=== PATIENT | female | born 2000 | race Caucasian/White ===

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

== ENCOUNTER → 2019-02-19 | Outpatient (CLI) | payer BC | LOC: COL.RAD 07:41 | DX: R19.7 Diarrhea, unspecified (principal); R11.0 Nausea | CPT/HCPCS: A9541 ==

== ENCOUNTER → 2020-01-03 | Outpatient (CLI) | payer BC | LOC: COL.RAD 09:34 | DX: R11.2 Nausea with vomiting, unspecified (principal); R10.9 Unspecified abdominal pain ==

== ENCOUNTER → 2020-02-07 | Outpatient (CLI) | payer BC | LOC: COL.RAD 11:13 | DX: R11.2 Nausea with vomiting, unspecified (principal) ==

== ENCOUNTER → 2020-03-06 | Outpatient (CLI) | payer BC | LOC: COL.RAD 11:21 | DX: R11.2 Nausea with vomiting, unspecified (principal) | CPT/HCPCS: A9537; J2805 ==

== ENCOUNTER 2020-03-17 09:40 | Day surgery (SDC) | payer BC ==
[~2020-03-17] VITALS: Ht 165.1 cm; Wt 76.4 kg
[2020-03-17 10:12] VITALS: BP 126/73; PULSE 75; TEMP 98.4
[2020-03-17] MEDS ORDERED: MOTRIN 600600 MG/TAB PO (13:25)
[2020-03-17] MEDS ORDERED: PERCOCET 325 MG1 TA2 PO (13:25)
[2020-03-17 14:25] VITALS: BP 122/65; PULSE 67; TEMP 97.3
--- NOTE | 2020-03-17 14:25 | NUR ---
Patient arrives to [facility] via cart, accompanied by TECHNICAL SALES ENGINEER Starla Medel. She is sleepy, awakens to light touch/voice. She has 4 surgical sites on her abdomen that are clean/dry/glue intact. Abdomen is soft, tender. Monitoring is applied -VSS and WNL on room air. Call light in reach. Lights are dimmed for comfort. Will continue to monitor.
--- NOTE | 2020-03-17 14:36 | NUR ---
Patient requests a work release for herself and her boyfriend, who will help her today and tomorrow. Dr. Teixeira says this is OK and a work release is made for the patient for 2 weeks of time off to recover and the boyfriend for today/tomorrow. Office number is listed for questions.
[2020-03-17 14:40] VITALS: BP 134/49; PULSE 83
--- NOTE | 2020-03-17 14:45 | NUR ---
Patient is asleep in her room. She awakens briefly while checking on her, then falls back to sleep.
[2020-03-17 15:00] VITALS: BP 131/69; PULSE 65
--- NOTE | 2020-03-17 15:00 | NUR ---
Patient is awake upon entering her room. She is face-timing her boyfriend. She states she is "sore", but otherwise has no complaints. She is offered and receives a sprite and a jello. She sits up in bed with assist and minimal pain. Will continue to monitor.
[2020-03-17 15:15] VITALS: BP 130/70; PULSE 68
--- NOTE | 2020-03-17 15:24 | NUR ---
Patient has ate/drank without difficulty/complication. She states "I feel like I just did 10 ab workouts". She is given a PO Percocet for abdominal discomfort. VSS on room air.
[2020-03-17 15:30] VITALS: BP 136/80; PULSE 57
--- NOTE | 2020-03-17 15:39 | NUR ---
Patient ambulates to the restroom with standby assist and steady gait. She voids a large amount of clear/yellow urine and returns to room.
--- NOTE | 2020-03-17 15:56 | NUR ---
Patient has met discharge criteria. She states she is ready to go home. PIV is removed with catheter intact and hemostasis achieved. Nursing staff assists her to change to her clothing and gather her belongings. Discharge instructions are discussed; she denies any questions and verbalizes understanding. She is told to orange picking supervisor her prescriptions at her preferred pharmacy. SHe is provided information on a low-fat diet. She is told that she may start taking her Motrin at 1815 this evening, as she received toradol IV in the OR at 1215. She is told she may have another percocet at 1923, as she received one here at 1523. She is escorted to the exit via wheelchair by staff. She is discharged to home to care of boyfriend, who drives her in a private car, at 1556.
== END 2020-03-17 15:56 | disposition home or self-care (01) ==
LOC: SDCO 09:40
DX: K81.1 Chronic cholecystitis (principal); J45.909 Unspecified asthma, uncomplicated; F17.290 Nicotine dependence, other tobacco product, uncomplicated
CPT/HCPCS: J0690; J1100; J1170; J1885; J2175; J2405; J2704; J3010; J3475; J7120

== ENCOUNTER → 2020-09-15 | Outpatient (CLI) | payer BC ==
[~2020-09-15] MED LIST changes: +MOTRIN 600600 MG/TAB PO; +PERCOCET 325 MG1 TA2 PO
== END ==
LOC: COL.RAD 07:10
DX: R10.13 Epigastric pain (principal); R14.0 Abdominal distension (gaseous); Z90.49 Acquired absence of other specified parts of digestive tract
CPT/HCPCS: Q9967

== ENCOUNTER 2020-10-06 08:23 | Emergency (ER) | payer BC ==
[~2020-10-06] VITALS: Ht 165.1 cm; Wt 79.1 kg
[2020-10-06 08:45] VITALS: TEMP 98.8
[2020-10-06 08:59] LABS: COLLECTION METHOD CLEAN CATCH
[2020-10-06 09:24] LABS: MUCOUS Present /lpf; PH 5 (5-8); URINE APPEARANCE Hazy; URINE BACTERIA None Seen /hpf; URINE BILIRUBIN Negative (NEGATIVE); URINE BLOOD Negative (NEGATIVE); URINE COLOR Yellow; URINE GLUCOSE Negative (NEGATIVE); URINE KETONE Negative (NEGATIVE); URINE LEUKOCYTE ESTERASE 1+ (NEGATIVE); URINE NITRATE Negative (NEGATIVE); URINE PROTEIN(semi-quant) Negative (NEGATIVE)
[2020-10-06 10:42] VITALS: BP 123/86; PULSE 84
== END 2020-10-06 10:42 | disposition home or self-care (01) ==
LOC: COL.ER 08:23
PROVIDERS: Emergency Medicine
DX: N89.8 Other specified noninflammatory disorders of vagina (principal); Z32.02 Encounter for pregnancy test, result negative
CPT/HCPCS: J0696